=== PATIENT | male | born 1975 | race African-American/Black ===

== ENCOUNTER 2020-06-04 17:30 | Emergency (ER) | payer MEDICARE, MEDICAID ==
[2020-06-04] MEDS ORDERED: SEROQUEL25 MG (17:48)
[2020-06-04] MEDS ORDERED: BENZTROPINE ME0.5 MG (17:49)
[2020-06-04 18:16] LABS: BASOPHILS 0.2 % (0-2); EOSINOPHILS 0.1 % (0-7); HEMOGLOBIN 15.2 g/dL (13.5-17.5); IMMATURE GRANULOCYTES 0.1 % (0-5); LYMPHOCYTE ABS# 1.89 10x3/uL (1.32-3.57); LYMPHOCYTES 18.5 % (15-50); MCH 28.7 pg (26.0-34.0); MEAN PLATELET VOLUME 10.1 fL (7.4-10.4); MONOCYTES 8.7 % (2-11); NEUTROPHIL ABS# 7.41 10x3/uL (1.78-5.38); NEUTROPHILS 72.4 % (40-80); PLATELET COUNT 218 10x3/uL (130-400); RBC 5.29 10x6/uL (4.20-6.10); RDW 14.8 % (11.5-14.5); WBC 10.2 10x3/uL (4.8-10.8)
[2020-06-04 18:29] LABS: ANION GAP 16.5 mmol/L (8-16); CALCIUM 9.7 mg/dL (8.5-10.1); CREATININE - SERUM 1.3 mg/dL (0.6-1.3); POTASSIUM - SERUM 3.5 mmol/L (3.5-5.1)
[2020-06-04 18:34] LABS: ALBUMIN 4.3 g/dL (3.4-5.0); BILIRUBIN - TOTAL 1.14 mg/dL (0.2-1.3); PROTEIN - SERUM 7.7 g/dL (6.4-8.2)
[2020-06-04 19:05] LABS: SARS-CoV-2 ANTIGEN NEGATIVE- SARS-COV-2 (NEGATIVE)
[2020-06-04 19:16] LABS: BILIRUBIN NEGATIVE (NEGATIVE); KETONE MODERATE mg/dL (NEGATIVE); NITRITE NEGATIVE (NEGATIVE); UROBILINOGEN NORMAL mg/dL (< 2)
[2020-06-04 19:17] LABS: BACTERIA FEW HPF (NONE SEEN); WHITE CELLS - URINE 0-5 HPF (0-1)
[2020-06-04 19:23] LABS: UDS - AMPHET NEGATIVE QUAL (NEGATIVE); UDS - BARB NEGATIVE QUAL (NEGATIVE); UDS - BENZO NEGATIVE QUAL (NEGATIVE); UDS - COCAINE NEGATIVE QUAL (NEGATIVE); UDS - OPIATE NEGATIVE QUAL (NEGATIVE); UDS - PCP NEGATIVE QUAL (NEGATIVE); UDS - THC POSITIVE QUAL (NEGATIVE)
== END 2020-06-04 22:39 ==
LOC: D.ER 17:30
PROVIDERS: Emergency Medicine
DX: R45.851 Suicidal ideations (principal); R44.3 Hallucinations, unspecified